=== PATIENT | female | born 1965 | race Caucasian/White ===

== ENCOUNTER → 2017-12-14 | Day surgery (SDC) | payer BC ==
[~2017-12-14] VITALS: Ht 160 cm; Wt 113.0 kg
[~2017-12-14] MED LIST: ACETAMINOPHEN/HYDROcodone 325 MG/5 MG TAB ONE; BUPIVACAINE HCL PF 0.25% 30 ML VIAL INFIL ONE; CEPH-460 PO; CHLORHEXIDINE GLUCONATE 2 % 1 PACK (2 CLOTHS) TOPICAL PRN; HYDR-3288 PO; LACTATED RINGER'S 1000 ML IV PRN; LIDOCAINE HCL 2% 50 ML VIAL INFIL ONE; METOPROLOL TARTRATE 25 MG TAB PO PRN; MIDAZOLAM HCL 2 MG/2 ML VIAL ONE; PANT40TA3 PO; POVIDONE IODINE 5% (ANTISEPSIS KIT) 4 APPLICATIONS EACH NARE PRN; SODIUM CHLORID 0.9% 500 ML IV PRN; TAMOPOW11 PO; ceFAZolin 2 GM/DEX PREMIX 50 ML IV SCH
--- NOTE | 2017-12-14 10:53 | MP ---
cc: Jason Farmer MD DATE OF OPERATION: 12/14/2017 PREOPERATIVE DIAGNOSES: 1. Left carpal tunnel syndrome. 2. Left ulnar neuropathy. PROCEDURE PERFORMED: 1. Left open carpal tunnel release. 2. Left ulnar nerve release at the wrist. SURGEON: Jason Farmer III, MD PROCEDURE: The patient was brought to the operating room, placed supine on the operating table. After the correct site and side of surgery were verified by members of each team in the room multiple times including the patient, myself, and after adequate preoperative markings, preoperative written consent was verified by everyone and after adequate IV sedation had been achieved, the left upper extremity was prepped and draped in traditional sterile surgical fashion. A 50:50 mixture was injected into the skin and subcutaneous tissue in the area of the planned incision into the carpal tunnel. The limb was exsanguinated with an Ky wrap and a highly placed well-padded axillary tourniquet was inflated to 200 mmHg for a total of 23 minutes. A longitudinally oriented incision at the base of the palm within the skin crease was made and carried down through skin and subcutaneous tissue. Bipolar electrocautery was used as needed. Palmar fascia was retracted in opposite directions. Transverse carpal ligament was identified and transected in its entirety at its midline into the ulnar side of its midline from its proximal-most to its distal-most extent, completely releasing the carpal tunnel and all of its contents, which were obviously under pressure as there was some rebound. There was a moderately hypertrophic tenosynovium. Otherwise, everything appeared intact and not compromised. Otherwise, there is no evidence of any mass effect. Thorough irrigation was performed with saline. The skin edges reapproximated using running 4-0 nylon suture. Incision with angles at the flexion crease of the wrist was made overlying Guyon's canal. Blunt dissection was performed. Some very noticeable and impressive crossing bands of tissue had the ulnar nerve tented and kinked and releasing this had quite a dramatic effect on the now more natural and comfortable appearance of the nerve. It was followed distally into the palm and proximally into the forearm with no other signs of constriction. There were no other anatomic abnormalities. Thorough irrigation was performed. Skin edges were reapproximated using running and interrupted 4-0 nylon suture. The hand and arm were thoroughly cleansed and dried with Betadine. Adaptic dressing was applied on top of the wounds, followed by a bulky soft dressing. The axillary tourniquet was released after the dressing was applied and the hand and all the fingers became immediately soft, pink, warm, had brisk capillary refill of less than 2 seconds. The patient was awakened from anesthesia and transported to the Postanesthesia Care Unit awake and in stable condition at the end of the case. Sponge, needle and instrument counts were correct at the end of the case as reported by the nurses in the room. MD ROSETTE Bates/TL , 10:30 AM , 10:51 AM
[2017-12-14 11:35] VITALS: BP 140/62; PULSE 56; RESP 16; TEMP 97.2; O2SAT 95
[2017-12-14] MEDS: BUPIVACAINE/EPINEPHRINE 0.25% PF 10 ML VIAL INFIL ONE ×2 (18:11→18:12)
== END | disposition home or self-care (01) ==
LOC: PHSDC 07:41
PROVIDERS: ATTEND Orthopaedic Surgery Hand Surgery
DX: G56.02 Carpal tunnel syndrome, left upper limb (principal); G56.22 Lesion of ulnar nerve, left upper limb
CPT/HCPCS: 01810; 64719; 64721; J0690; J2250; J3010; J7120